=== PATIENT | female | born 1945 | race Caucasian/White ===

== ENCOUNTER 2016-11-06 11:08 | Emergency (ER) | payer MEDICARE ==
--- NOTE | 2016-11-06 11:43 | ERNOTE ---
Dizziness ER Record Date of Service: 11/06/16 Presenting Symptoms: dizziness Time Seen by Provider: 11/06/16 11:40 Source: patient Immunizations: IMMUNIZATION HX Immunizations Up to Date Yes History of Influenza Vaccine Yes Hx Pneumococcal Vaccination Yes Allergies/Adverse Reactions: Allergies Allergy/AdvReac Type Severity Reaction Status Date / Time No Known Allergies Allergy Unverified 11/06/16 11:27 Home Medications: HOME MEDICATIONS Alprazolam [Xanax] 0.25 mg PO PRN PRN 11/06/16 [Last Taken Unknown] FLUoxetine HCL [Fluoxetine HCl] 20 mg PO DAILY 11/06/16 [Last Taken Unknown] Gemfibrozil [Lopid] 600 mg PO BID 11/06/16 [Last Taken Unknown] Levothyroxine Sodium [Synthroid] 75 mcg PO DAILY 11/06/16 [Last Taken Unknown] - History of Present Illness Narrative: PT . C/O DIZZINESS , ANXIETY AND STRESS WITH HER SON'S RECENTS , 1 MONTH AGO OF LUNG CA. . SHE HAS BEEN USING OCC. 1/2 XANAX TABLET. SHE IS PRESCRIBED 0.25 FOR ANXIETY, BUT ONLY ONCE A DAY SHE DOES NOT LIKETO USE MORE BECAUSE OF THE WAY IT MAKES HER FEEL. SHE IS ALSO TAKING WALDRAM II , 25 MG MECLIZINE , FROM [employer] , OCCASIONALLY FOR HER DIZZINESS BECAUSE SHE THINKS SHE WAS ON A SIMILAR BRAND BEFORE AND IT HELPED. SHE HAS ALSO BEEN GOING TO A [facility]IR[facility] 2 WEEKS AGO AND YESTERDAY FOR TREATMENTS THAT HELP HER DIZZINESS TEMPORARILY. SHE DESCRIBES HER DIZZINESS BEING INTERMITTENT AND SOMETIMES MAKING HER FEEL LIKE SHE IS GOING TO FALL , FOR EXAMPLE WHEN SHE IS UP ON A LADDER TO CLEAN A LIGHT FIXTURE AND SHE LOOKS UPWARD SHE GETS A SWIMMING UNSTEADY FEELING. 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 A FRIEND SUGGESTED SHE COME HERE TODAY. SHE HAS NOT DISCUSSED THIS WITH HER FAMILY . IT SOUNDS LLIKE SHE MAY HAVE BEEN DX'D WITH VERTIGO IN THE PAST. SHE DENIES ETOH OR DRUGS. SHE DOES DRINK ~8CUPS OF COFFEE A DAY "SMALL CUPS". SHE SAYS SHE HAS BEEN ON FLUOXETINE FOR 10 YEARS FOR ANXIETY . SHE DOES LIVE ALONE. Review of Systems - Review of Systems Constitutional: Present: See HPI Neurological: Present: anxiety, emotional problems, dizziness/light-headedness Psych: Present: anxiety, emotional problems All Other Systems: All systems neg except as marked - Patient's Past Medical History Patient History - Medical: Anxiety, Hypothyroidism Patient History - Cardiac/Respiratory: No pertinent hx, Hyperlipidemia Patient History - Cancer: No Hx of Cancer Patient History - Surgical Procedures: Appendectomy Patient History - Other: None - Social History Living Situations: alone Abuse History: No History of abuse Psych History: Hx of Anxiety Smoking Status: Current every day smoker Have you smoked in the past 12 months: Yes Alcohol Use: none Drug Use: none - Immunizations Immunizations Up to Date: Yes Hx Pneumococcal Vaccination: Yes History of Influenza Vaccine: Yes Physical Exam - Physical Exam General Appearance: Present: wd/wn, alert, no apparent distress - SMALL SLENDER FIT LOOKING 71 YO LADY , A & O & COOP WITH NAD. Eye Exam: Normal inspection: bilateral, PERRL: bilateral, EOMI: bilateral Ears, Nose, Throat: Present: normal ENT inspection Neck: Present: normal inspection, nontender. 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 Absent: facial droop, motor weakness, disoriented to person, disoriented to time, disoriented to place, disoriented to situation Skin Exam: Present: normal color ED Progress - Results and Orders Patient's Lab Results:: I have reviewed the patient's lab results. Results and Orders: CBC CMP AND UA ARE NORMAL - Vital Signs Patient's Vital Signs:: I have reviewed the patient's vital signs. Vital Signs: Vital Signs 11/06/16 11/06/16 11:20 11:32 Temperature 37.0 C Pulse Rate 71 71 Respiratory 18 Rate Blood Pressure 137/89 O2 Sat by Pulse 99 Oximetry - EKG EKG: NSR EKG read: Interp. by me - Progress/Reassessment Chief Complaint: Dizziness Departure Clinical Impression: Dizziness, psychogenic - Departure Disposition: Home Follow Up Needed Condition: Good Instructions: Dizziness, [id number] Additional Instructions: If the xanax gives you a feeling you do not like, don't use it. use the mg just twice a day. Since you drink so much coffee try to gradually decrease to 2 cups of caffeinated coffee / day. Do not get on ladders or stools or drive until you feel the dizziness is under better control. Recheck with your family doctor late this week or next week if not improved. Ultimately you need too also stop smoking. Referrals: Alla Jones MD [Primary Care Provider] -
[2016-11-06 11:46] LABS: Hematocrit 42.4 % (37.0-47.0); Hemoglobin 14.1 gm/dL (12.5-16.0); Mean Cell Volume 94.4 fl (78-100); Mean Corpuscular Hemoglobin 31.4 pg (27-31); Mean Corpuscular Hgb Conc 33.3 g/dl (32-36); Mean Platelet Volume 9.2 fl (6.0-9.5); Neutrophil # 6.2 K/mm3 (1.3-6.0); Neutrophil % 66.8 % (42-75.0); Platelet Count 293 K/mm3 (150-450); Red Blood Count 4.49 M/mm3 (4.2-5.4); Red Cell Distribution Width 12.9 % (11.5-14.0); White Blood Count 9.2 K/mm3 (4.0-10.5)
[2016-11-06 11:47] LABS: Urine Bilirubin Negative (NEGATIVE); Urine Ketone Negative (NEGATIVE); Urine Nitrite Negative (NEGATIVE); Urine Protein Negative (NEGATIVE); Urine Specific Gravity <=1.005 SP.GR. (1.005-1.010); Urine Urobilinogen Normal (NORMAL); Urine pH 6.5 pH (5.0-7.0)
[2016-11-06 11:58] LABS: Urine Appearance Clear; Urine Color Yellow
[2016-11-06 11:59] LABS: Urine Bacteria TRACE; Urine RBC TRACE /hpf (0-5); Urine WBC None Seen /hpf (0-5)
[2016-11-06 12:00] LABS: Urine Blood 5 /ul (NEGATIVE)
[2016-11-06 12:15] LABS: Albumin * 4.4 gm/dl (3.4-5.0); Anion Gap 14.3 mmol/L (6.8-13.8); BUN/Creatinine Ratio 16.9 (9.0-21.6); Bilirubin, Total 0.4 mg/dL (0.0-1.1); Ca. Corrected For Albumin 9.4 mg/dL (8.4-10.2); Carbon Dioxide 28.3 mmol/L (24-32.6); Potassium 4.6 mmol/L (3.4-4.6); Total Protein 8.9 gm/dL (6.2-8.2)
[2016-11-06 12:43] VITALS: BP 137/60
== END 2016-11-06 12:42 | disposition home or self-care (01) ==
LOC: ER 11:08
DX: F45.8 Other somatoform disorders (principal); Z72.0 Tobacco use; F41.9 Anxiety disorder, unspecified; E78.5 Hyperlipidemia, unspecified